=== PATIENT | female | born 2000 | race Hispanic/Latino ===

== ENCOUNTER 2021-09-21 17:04 | Emergency (ER) | payer OTHER ==
[~2021-09-21] VITALS: Ht 167.6 cm; Wt 70.5 kg
[2021-09-21] MEDS ORDERED: BACITRACIN OINTMENT 30GM TUBE TOP ONE (20:55)
[2021-09-21] MEDS ORDERED: AUGMENTIN 875 MG TAB PO ONE (20:55)
[2021-09-21] MEDS ORDERED: AMOX875T2 PO (20:57)
[2021-09-21 21:51] VITALS: BP 116/77
== END 2021-09-21 21:53 | disposition home or self-care (01) ==
LOC: M ED 17:04
DX: S61.432A Puncture wound without foreign body of left hand, initial encounter (principal); S60.222A Contusion of left hand, initial encounter; S60.572A Other superficial bite of hand of left hand, initial encounter; W54.0XXA Bitten by dog, initial encounter; Y92.099 Unspecified place in other non-institutional residence as the place of occurrence of the external cause; Y93.89 Activity, other specified; Y99.9 Unspecified external cause status